=== PATIENT | female | born 1980 ===

== ENCOUNTER 2016-12-18 09:08 | Inpatient (IN) | payer MEDICAID, OTHER ==
[2016-12-18 10:13] VITALS: BMI 35.2
--- NOTE | 2016-12-18 10:26 | OBHP ---
Datetime: 12/18/2016 09:58 IP Adm Impression: Term, intrauterine IP Chief Complaint Other: elevated bp in clinic IP Admit Plan: Admit to unit Admit Comment, IP Provider: chief complaint-elevated bp in clinic HPI 36 y/o at 37 weeks and 3 days sent from the [facility] due to findings of elevated bp in clinic today.BP 158/98 today in clinic.Patient denies nausea, vomiting, headache. chest pain, shy rtness of breath, numbness or tinglning in handds and feet, epigastric pain, right upper quadrant aristides n.Patient denies any vulvar pain, ulcers or discomfort course complicated by AMA, type 2 diabetes metformin and glyburide( patient was on metfor min 1000mg po bid and then started on glyburide 2.5 mg daily on 06/26/2016); care with dr delfina palomo in [facility] at [facility]; no echo report available ; patienst blood sugar log shows fasting sugars in 90s and 2 hour PP in 100s; hx of hsv type 2 antobodies.patient denies any ou tbreaks.patient not on valtrex. PMH type 2 diabetes; hsv type 2 antibodies PSH csection OBGYN HX ; csection done. weight 10 pounds Social hx denies tobacco,alcohol or illicit drug use Exam see exam section A/P 36 y/o at 37 weeks and 3 days sent from clinic for elevated bp.FHT cat2 -pih labs -iv fluid bolus -close monitoring.discussed with patient that if tracing continues to be nonreactive delivery may be indicated.patient voices udnerstanding the plan Pelvic Type - PN: Adequate Extremities - PN: Normal Abdomen - PN: Normal Back - PN: Normal Lungs - PN: Normal Heart - PN: Normal Neurologic - PN: Normal General - PN: Normal FHR - Baseline A Provider: 140s Contraction Comments Provider: occ Gestation - Est Wks by US: 37.3 IP Hx Assessment: The History has been Reviewed and is Current EGA AdmitDate IP: 37.3 Vital Signs Provider: Reviewed; Within Normal Limits IP Chief Complaint: Other NICHD Variability Prov Fetus A: Minimal - Undetectable to <5bpm FHR Category Provider Fetus A: Category II NICHD Decel Fetus A IP Provider: None Genitourinary Exam: Normal DTRs - PN: Normal
[2016-12-18 10:38] LABS: BASO % 0.7 % (0.0-2.0); EOS # 0.1 K/uL (0.0-0.7); EOS % 0.9 % (0.0-4.0); LYMPH # 1.7 K/uL (1.0-4.3); LYMPH % 24.7 % (20.0-40.0); MEAN CELL VOLUME 86.1 fL (81.0-99.0); MEAN CORPUSCULAR HEMOGLOBIN 27.9 pg (27.0-31.0); MEAN CORPUSCULAR HGB CONC 32.4 g/dL (33.0-37.0); MEAN PLATELET VOLUME 11.6 fL (7.2-11.7); MONO # 0.5 K/uL (0.0-0.8); MONO % 6.5 % (0.0-10.0); NEUT # 4.6 K/uL (1.8-7.0); NEUT % 67.2 % (50.0-75.0); NRBC % 0.1 % (0.0-2.0); RBC 3.95 Mil/uL (3.80-5.20); WHITE BLOOD COUNT 6.9 K/uL (4.8-10.8)
[2016-12-18 10:42] LABS: SQUAMOUS EPITHIAL 6 /hpf (0-5); URINE BILIRUBIN NEGATIVE (NEGATIVE); URINE BLOOD NEGATIVE (NEGATIVE); URINE CLARITY Hazy (Clear); URINE COLOR Yellow (YELLOW); URINE GLUCOSE (UA) NORMAL (Normal); URINE NITRATE NEGATIVE (NEGATIVE); URINE PROTEIN 2+ mg/dL (NEGATIVE); URINE UROBILINOGEN NORMAL mg/dL (0.2-1.0)
[2016-12-18 10:43] LABS: URINE LEUKOCYTE ESTERASE 1+ Leu/uL (Negative)
[2016-12-18 10:49] LABS: ALBUMIN 3.1 g/dL (3.5-5.0)
[2016-12-18 10:52] LABS: ALB/GLOB RATIO 0.7 (1.0-2.1); AST/SGOT 89 U/L (14-36); BLOOD UREA NITROGEN 14 mg/dL (7-17); GFR AFRICAN-AMERICAN > 60; GFR NON-AFRICAN AMERICAN > 60
[2016-12-18 10:53] LABS: ALT/SGPT 138 U/L (9-52); CALCIUM 8.7 mg/dl (8.6-10.4); URIC ACID 6.2 mg/dL (2.2-7.5)
[2016-12-18] MEDS ORDERED: Sodium Citrate/Citric Acid 15 ml Sol PO ONE (10:53)
[2016-12-18] MEDS ORDERED: cefOXitin IV 2 gm in Dextrose 2 GM/50 ML BAG IVPB ONE ×2 (10:53→11:10)
[2016-12-18 11:07] LABS: INR 0.9; PROTHROMBIN TIME 9.8 SECONDS (9.7-12.2)
[2016-12-18] MEDS ORDERED: Oxytocin 20 units in LR 2,000 ML IV ONE (11:10)
[2016-12-18] MEDS ORDERED: Sodium Citrate/Citric Acid 15 ml Sol ONE (11:10)
[2016-12-18] MEDS ORDERED: Morphine 1 mg/ml preservative-free Inj(Duramorph) ONE (11:41)
--- NOTE | 2016-12-18 13:41 | OBDS ---
DELIVERY PERSONNEL Delivery Doctor: Dontae Contreras MD Scrub Nurse: Pauly Gonzalez Molder Setter: Dora Freire RN Anesthesiologist: Marilu Arriola MD Party Planner: tanisha displayer MATERNAL INFORMATION Delivery Anesthesia: Spinal Medications in Delivery: pitocin Estimated Blood Loss (ml): 900 Placenta Cultured: No Maternal Complications: Other Other Maternal Complications: PGDM Elevated BP RN Comments: baby boy born via repeat csection. apgars 9/[address] gabriel in attendance. Provider Comments: repeat csection and btl done apagsr 9/9 at1 and 5 min of life [id number] weight 9.9 pounds LABOR SUMMARY EDC: 01/05/2017 00:00 MEMBRANES Membranes Rupture Method: Artificial Rupture of Membranes: 12/18/2016 12:12 Length of Rupture (hrs): 0.02 Amniotic Fluid Color: Light Meconium Amniotic Fluid Amount: Moderate STAGES OF LABOR Stage 3 hrs: 0 Stage 3 min: 1 CSECTION DELIVERY Primary Indication: Other Other Primary Indication: pre-eclampsia Secondary Indication: Repeat Elective CSection Urgency: Non Elective CSection Incidence: Repeat Labor: No Labor Elective: Nonelective CSection Incision: Lower Uterine Transverse Sterilization Procedure: Hobson Uterine Closure: Single-layer closure BABY A INFORMATION Delivery Date/Time: 12/18/2016 12:13 Method of Delivery: Born in Route : No : N/A Forceps: N/A Vacuum Extraction: N/A Shoulder Dystocia : No SHOULDER DYSTOCIA BABY A Delivery Date/Time: 12/18/2016 12:13 PRESENTATION/POSITION BABY A Presentation: Cephalic Cephalic Presentation: Vertex Breech Presentation: N/A PLACENTA INFORMATION BABY A Placenta Delivery Time : 12/18/2016 12:14 Placenta Method of Delivery: Manual Removal Placenta Status: Delivered SCORES BABY A Heart Rate 1 min: >100 bpm Resp Effort 1 min: Good Cry Reflex Irritability 1 min: Cough or Sneeze or Pulls Away Muscle Tone 1 min: Active Motion Color 1 min: Body Fair Plain, Extremities Blue Resuscitation Effort 1 min: N/A SCORE 1 MIN: 9 Heart Rate 5 min: >100 bpm Resp Effort 5 min: Good Cry Reflex Irritability 5 min: Cough or Sneeze or Pulls Away Muscle Tone 5 min: Active Motion Color 5 min: Body Fair Plain, Extremities Blue Resuscitation Effort 5 min: N/A SCORE 5 MIN: 9 INFORMATION BABY A Gestational Age at Delivery: 37.3 Gestational Status: Term Infant Outcome : Liveborn Condition : Stable Infant Sex: Male WEIGHT/LENGTH BABY A Birthweight (gms): 4345 Weight (lb): 9 Weight (oz): 9 Length Inches: 20.00 Length cms: 50.8 CORD INFORMATION BABY A No. Cord Vessels: 3 Nuchal Cord : N/A Nuchal Cord Other: 0 True Knot: 0 Cord Blood Taken: Yes Suction: Mouth; Nose ASSESSMENT BABY A Complications: Other Complications Other: PGDM elevated BP Physical Findings at Delivery: Within Normal Limits Respirations: Appears Normal Mouse Breeder/ALS Called : Yes Infant Care By: DR Gabriel Transferred To: Remains with Mother
[2016-12-18] MEDS ORDERED: DiphenhydrAMINE 50 mg/ml Inj IVP PRN (13:43)
[2016-12-18] MEDS ORDERED: Naloxone 0.4 mg/ml Inj (Adult) IVP PRN (13:43)
[2016-12-18] MEDS ORDERED: Oxycodone/Acetaminophen 5/325 mg Tab PO PRN (14:10)
[2016-12-18] MEDS: cefOXitin IV 2 gm in Dextrose 2 GM/50 ML BAG IVPB SCH (18:40)
[2016-12-18] MEDS ORDERED: Lactated Ringer's 1,000 ML IV SCH (20:45)
--- NOTE | 2016-12-18 21:17 | PCM.OP ---
Operative Report - Operative Report Date of Surgery/Procedure: 12/18/16 Time of Surgery/Procedure: 11:46 Surgeon: Vickey Contreras Tool Operator: Oscar Aden Anesthesia/Sedation: Spinal; Dr Nicholas Arriola Pre-Operative Diagnosis: previous csection, pre-eclampsia, at 37 weeks , multiparity requesting sterilization Post-Operative Diagnosis: same as preop diagnosis Indication for Surgery: previous csection, pre-eclampsia, at 37 weeks , multiparity requesting sterilization Operative Findings: viable male in vertex presentation with apagars of 9 at 1 min and 9 at 5min of life; normal uterus tubes and ovaries; adhesions betweenomentum and anterior abdominal wall Procedure/Operation Description: Repeat section and bilateral tubal ligation Estimated Blood Loss: 900 Blood Replaced: none Sponge/Instrument Count: correct at the end of procedure Complications: none Specimen: placenta and cord blood; segment of right and left fallopian tube Discharge & Condition: stable to pacu Additional Comments - Additional Comments Additional Comments: Please note that the procedure required a surgical coordinator to assist with the entry into the abdominal cavity, to retract the tissues, to assist with the dissection as well as to assist with the delivery of the infant and assist with the closure of the abdominal wall. The surgical coordinator was present and scrubbed for the entire duration of the procedure. PROCEDURE IN DETAIL: After informed consent was obtained, the patient was taken to the operating room and spinal anesthesia was placed by anesthesia team.She was thereafter placed in dorsal supine position with a leftward tilt. The patient was then prepped and draped in the usual sterile manner. The Maldonado catheter was determined to be draining urine. A skin incision was then made with the scalpel in the previous csection scar incision was and carried down to the underlying layer of the fascia with the help of the Bovie. The fascia was then incised in the midline and the incision extended laterally with the help of electrocautery as well. The superior aspect of the fascial incision was then grasped with Armond clamps, elevated, and the underlying rectus muscle dissected off. The inferior aspect of the fascial incision was then grasped with Armond clamps, elevated, and the underlying rectus muscle was dissected off as well. The rectus muscle was then in the midline sharply. The peritoneum was picked up with 2 clamps and entered sharply with Metzenbaum scissors. Adhesions between the omentum and anterior abdominal wall were found and these were clamped and suture ligated.The peritoneal incision was extended superiorly and inferiorly with good visualization of the bladder. The bladder blade was then inserted and the vesicouterine peritoneum identified. A transverse incision was made over the vesicouterine peritoneum with the help of Metzenbaum scissors. The incision was extended laterally sharply using Metzenbaum scissors as well. The bladder blade was then reinserted after the bladder flap has been created. The lower uterine segment was identified. A transverse incision was made in lower uterine segment with the help of a fresh scalpel. The incision was extended laterally with the help of bandage scissors. The 's head was then delivered atraumatically. The body and the shoulders were delivered without any difficulty and the cord was then clamped and cut. The was handed over to the waiting pediatricians. A segment of cord was taken to collect cord blood pH. The cord blood was then collected and the placenta was then manually removed. The uterus was exteriorized and cleared of all clots and debris. The uterine incision was being repaired with 0 Polysorb in a running-locked fashion. Bleeding was noted from the right uterine artery which was sutured ligated using 0-chromic.The uterine incision repair site was noted to be homeostatic at this point.Patient had requested bilateral tubal ligation and this was done using pomeroys technique.The right fallopian tube was grasped with carlos clamp and a loop was made taking atleast 3cm of the fallopian tube in the midsection of the tube , using 2-0 plain.The loop was excised and the cut edges were cauterized.Similar procedure was repeated on left side as well. The uterus was returned to the patient's abdomen and the gutters were irrigated and suctioned. The uterus and the fallopian tubes ligation site on both sides was inspected for hemostasis and adequate hemostasis was noted . Surgicel was placed over the uterine incision repair site.The peritoneum was thereafter closed with 2-0 Polysorb in a running fashion. The muscle layer was reapproximated with 2-0 Polysorb in a running fashion. The fascia was closed with 0 Vicryl in a running fashion. The subcutaneous tissue was reapproximated with 2-0 Polysorb in a running fashion. The skin was then closed with sully. The sponge, lap, needle, and instrument count was correct x 3 as reported to me. The patient tolerated the procedure well. The patient was thereafter cleaned and taken to the recovery room in stable condition.
[2016-12-19] MEDS: cefOXitin IV 2 gm in Dextrose 2 GM/50 ML BAG IVPB SCH ×2 (02:21→13:39)
[2016-12-19 08:49] LABS: BASO % 0.4 % (0.0-2.0); EOS % 0.1 % (0.0-4.0); HEMOGLOBIN 10.5 g/dL (11.0-16.0); LYMPH # 1.5 K/uL (1.0-4.3); LYMPH % 12.1 % (20.0-40.0); MEAN CELL VOLUME 85.1 fL (81.0-99.0); MEAN CORPUSCULAR HEMOGLOBIN 27.8 pg (27.0-31.0); MEAN CORPUSCULAR HGB CONC 32.6 g/dL (33.0-37.0); MEAN PLATELET VOLUME 11.8 fL (7.2-11.7); MONO # 0.6 K/uL (0.0-0.8); NEUT # 10.4 K/uL (1.8-7.0); NEUT % 82.4 % (50.0-75.0); RBC 3.8 Mil/uL (3.80-5.20)
[2016-12-19 08:54] LABS: WHITE BLOOD COUNT 12.6 K/uL (4.8-10.8)
[2016-12-19 08:58] LABS: ALBUMIN 2.6 g/dL (3.5-5.0)
[2016-12-19 09:01] LABS: GFR AFRICAN-AMERICAN > 60; GFR NON-AFRICAN AMERICAN > 60
[2016-12-19 09:02] LABS: ALB/GLOB RATIO 0.7 (1.0-2.1); ALT/SGPT 110 U/L (9-52); AST/SGOT 74 U/L (14-36); BLOOD UREA NITROGEN 10 mg/dL (7-17); CALCIUM 8.1 mg/dl (8.6-10.4)
[2016-12-19] MEDS: Simethicone 80 mg Chewtab PO SCH ×4 (09:59→21:55)
[2016-12-19] MEDS: Prenatal Multivit/Folic Acid/Iron Tab PO SCH (09:59)
[2016-12-19] MEDS: Oxycodone/Acetaminophen 5/325 mg Tab PO PRN ×2 (10:00→17:24)
[2016-12-19] MEDS ORDERED: cefOXitin IV 2 gm in Dextrose 2 GM/50 ML BAG IVPB ONE (13:33)
--- NOTE | 2016-12-19 14:14 | OBPPN ---
Datetime: 12/19/2016 13:42 PP Pain Prov: Within normal limits PP Nausea Prov: Denies PP Flatus Prov: No PP BM Prov: No PP Breasts Prov: Normal PP Heart Prov: Normal PP Lungs Prov: Normal PP Abdomen/Uterus Prov: Normal PP Lochia Prov: Normal PP Vulva/Perineum Prov: Not Done PP CVA Tenderness Prov: Normal PP Extremities Prov: Normal PP C/S Incision Prov: Normal PP Progress Prov: Not Applicable PP Comments Phys Exam Prov: Skin: warm, dry, intact Abdomen: (+) BS. Soft. Dressing - clean and dry. Mild lochia rubra Extremities: no calf tenderness All other systems reviewed and are negative PP Impression Prov: Normal progression PP Plan Prov: Continue present management PP Progress Note Prov: Patient evaluated at approx 0800 hours: sitting up in chair in room 453. Boo es nausea, vomiting after breakfast. Not yet voided. ambulated a little in her room. Denies flatus or BM. Concerned re: her discharge; was transferred to [facility] P.E.: as above. WD in NAD. Awake, alert, oriented to time, person and place. Pleasant and cooperat johanna - POD#1 H/H 10.5/32.3. Rh(+) Assessment: 36 yo P2; S/P C/S #2 with BTL at 37 weeks probable pre-eclampsia. Type II DM on metfor min. F.S. noted. Afebrile, vital signs stable. Clinically stable Plan: 1) Encourage ambulation in hallways 2) Medicine consult - DM management 3) Will consider discharge home, 12/20 16 Vital Signs Provider PP: Reviewed; Within Normal Limits
--- NOTE | 2016-12-19 21:58 | CP.PCM.CON ---
<SapnaAleta L. - Last Filed: 12/19/16 21:54> History of Present Illness - History of Present Illness History of Present Illness: PGY1- Medicine note-Dr. Osman's Service MEDICAL CONSULT to OB for DM2 Ms. Lamb is a 36yo female s/p emergent with bilateral tubal ligation yesterday (12/18/16) due to elevated blood pressure, probable pre- eclampsia. was done at 37 weeks 3 days, was complicated by advanced maternal age, pre-gestational type 2 diabetes on metformin and glyburide (patient was on metformin 1000mg po bid prior to and started on glyburide 2.5mg po daily of 06/26/16) and HSV type 2 antibodies. Pt denies active outbreak or medication control. Patient is resting comfortably in bed. Patient admits to tenderness over the incision site. Patient is having normal urination. Patient has yet to have a bowel movement since delivery. Denies headache, dizziness, chest pain, palpitations, shortness of breath, nausea, or vomiting, pedal edema. PMH: diabetes mellitus type 2, HSV type 2 Allergies: NKA Surgical Hx: x2, first for breech, second with bilateral tubal ligation. OBGYN: ; done, weight 9 lbs 9 oz Family Hx: Denies hypertension, diabetes. Social Hx: Denies ever tobacco, alcohol, illicit drug use. Review of Systems - Constitutional Constitutional: Fatigue. absent: Fever, Headache - EENT Eyes: absent: Blurred Vision, Diplopia Ears: absent: Decreased Hearing Nose/Mouth/Throat: absent: Nasal Congestion, Sinus Pain, Sinus Pressure - Cardiovascular Cardiovascular: absent: Chest Pain, Dyspnea, Edema, Palpitations - Respiratory Respiratory: absent: Cough, Dyspnea, Pain on Inspiration - Gastrointestinal Gastrointestinal: Constipation - Genitourinary Genitourinary: absent: Change in Urinary Stream, Difficulty Urinating, Dysuria, Urinary Incontinence, Urinary Hesitance - Musculoskeletal Musculoskeletal: absent: Joint Swelling, Muscle Cramps, Muscle Weakness - Integumentary Integumentary: absent: Skin Ulcer - Neurological Neurological: absent: Dizziness, Numbness, Headaches, Tingling - Psychiatric Psychiatric: absent: Behavioral Changes - Hematologic/Lymphatic Hematologic: absent: Easy Bleeding, Easy Bruising Meds Allergies/Adverse Reactions: Allergies Allergy/AdvReac Type Severity Reaction Status Date / Time No Known Allergies Allergy Verified 12/18/16 18:38 - Medications Medications: Current Medications Diphenhydramine HCl (Benadryl) 25 mg IVP Q6 PRN PRN Reason: Itching / Pruritus Docusate Sodium (Colace) 100 mg PO BID [facility] Last Admin: 12/19/16 17:19 Dose: 100 mg Ferrous Sulfate (Feosol) 325 mg PO DAILY [facility] Last Admin: 12/19/16 09:59 Dose: 325 mg Oxytocin (Pitocin 20 Units In Lr) 1,000 mls @ 125 mls/hr IV .Q8H [facility] PRN Reason: Protocol Last Admin: 12/18/16 18:45 Dose: 125 mls/hr Ibuprofen (Motrin Tab) 600 mg PO Q6H PRN PRN Reason: Pain, Mild (1-3) Last Admin: 12/19/16 13:38 Dose: 600 mg [facility] Admin: 12/19/16 17:19 Dose: 1,000 mg Naloxone HCl (Narcan) 0.1 mg IVP Q2M PRN PRN Reason: apnea Ondansetron HCl (Zofran Inj) 4 mg IVP Q8H PRN PRN Reason: Nausea/Vomiting Last Admin: 12/18/16 20:37 Dose: 4 mg Oxycodone/Acetaminophen (Percocet 5/325 Mg Tab) 2 tab PO Q4H PRN PRN Reason: Pain, severe (8-10) Stop: 12/21/16 14:11 Oxycodone/Acetaminophen (Percocet 5/325 Mg Tab) 1 tab PO Q4H PRN PRN Reason: Pain, moderate (4-7) Stop: 12/21/16 14:11 Last Admin: 12/19/16 17:24 Dose: 1 tab Multivit/Folic Acid/Iron () 1 tab PO DAILY [facility] Last Admin: 12/19/16 09:59 Dose: 1 tab Simethicone (Mylicon Chew Tab) 80 mg PO QID [facility] Last Admin: 12/19/16 17:19 Dose: 80 mg Physical Exam - Constitutional Appears: Well, No Acute Distress - Head Exam Head Exam: ATRAUMATIC, NORMAL INSPECTION, NORMOCEPHALIC - Eye Exam Eye Exam: EOMI, Normal appearance, PERRL - ENT Exam ENT Exam: Mucous Membranes Moist, Normal Exam - Neck Exam Neck exam: Positive for: Normal Inspection - Respiratory Exam Respiratory Exam: Clear to Auscultation Bilateral, NORMAL BREATHING PATTERN. absent: Rales, Rhonchi, Wheezes, Respiratory Distress, Stridor - Cardiovascular Exam Cardiovascular Exam: REGULAR RHYTHM, RRR. absent: Systolic Murmur - GI/Abdominal Exam GI & Abdominal Exam: Normal Bowel Sounds, Soft, Tenderness. absent: Distended, Firm, Guarding Additional comments: tender at c section incision site. sully intact, incision is clean and dry - Extremities Exam Extremities exam: Positive for: full ROM, normal inspection. Negative for: pedal edema, tenderness - Back Exam Back exam: NORMAL INSPECTION. absent: rash noted - Neurological Exam Neurological exam: Alert, Oriented x3 - Psychiatric Exam Psychiatric exam: Normal Affect, Normal Mood - Skin Skin Exam: Dry, Normal Color, Warm Additional comments: suprapubic incision dry, clean, intact Results - Vital Signs Recent Vital Signs: Last Vital Signs Temp 97.6 F 12/19/16 16:00 Pulse 61 12/19/16 16:00 Resp 18 12/19/16 16:00 BP 137/82 12/19/16 16:00 Pulse Ox 97 12/19/16 16:00 - Labs Result Diagrams: 12/19/16 08:37 12/19/16 08:37 Labs: Laboratory Results - last 24 hr 12/18/16 12/19/16 12/19/16 22:29 06:28 08:37 WBC RBC Hgb Hct MCV MCH MCHC RDW Plt Count MPV Neut % (Auto) Lymph % (Auto) [place] % (Auto) Eos % (Auto) Baso % (Auto) Neut # Lymph # [place] # Eos # Baso # Sodium 132 Potassium 3.7 Chloride 100 Carbon Dioxide 25 Anion Gap 11 BUN 10 Creatinine 0.7 Est GFR ( Amer) > 60 Est GFR (Non-Af Amer) > 60 POC Glucose (mg/dL) 130 H 146 H Random Glucose 160 H Calcium 8.1 L Total Bilirubin 0.5 AST 74 H ALT 110 H D Alkaline Phosphatase 185 H Total Protein 6.1 L Albumin 2.6 L Globulin 3.5 Albumin/Globulin Ratio 0.7 L 12/19/16 08:37 WBC 12.6 H D RBC 3.80 Hgb 10.5 L Hct 32.3 L MCV 85.1 MCH 27.8 MCHC 32.6 L RDW 15.0 H Plt Count 177 MPV 11.8 H Neut % (Auto) 82.4 H Lymph % (Auto) 12.1 L [place] % (Auto) 5.0 Eos % (Auto) 0.1 Baso % (Auto) 0.4 Neut # 10.4 H Lymph # 1.5 [place] # 0.6 Eos # 0.0 Baso # 0.0 Sodium Potassium Chloride Carbon Dioxide Anion Gap BUN Creatinine Est GFR ( Amer) Est GFR (Non-Af Amer) POC Glucose (mg/dL) Random Glucose Calcium Total Bilirubin AST ALT Alkaline Phosphatase Total Protein Albumin Globulin Albumin/Globulin Ratio Assessment & Plan - Assessment and Plan (Free Text) Assessment: 1. Diabetes Mellitus type 2 Continue metformin 1000mg po bid, deemed safe for per [employer] LactMed guide. Trend daily glucose. A1C done 2 months ago, and trending below 6.5%. Will not redraw. 2. S/P with BTL (12/18/16) due to probable pre-eclampsia at 37 weeks 3 days, Ibuprofen 600mg po q6h PRN for mild (1-08/23) pain control. Trend LFTs. Still elevated on latest draw but trending down (AST 74, ALT 110). - Percocet stopped, Oxycodone 5 mg ordered BP stable throughout until admission, monitor and trend prior to discharge. 3. Hx HSV type 2 Ab positive, no active lesions 4. Constipation Colace 100mg po bid <Loreto Osman V - Last Filed: 12/20/16 22:39> Results - Vital Signs Recent Vital Signs: Last Vital Signs Temp 98.6 F 12/20/16 08:00 Pulse 84 12/20/16 08:00 Resp 20 12/20/16 08:00 BP 132/89 12/20/16 08:00 Pulse Ox 98 12/20/16 08:00 - Labs Result Diagrams: 12/19/16 08:37 12/20/16 09:13 Labs: Laboratory Results - last 24 hr 12/19/16 12/20/16 12/20/16 08:37 07:50 09:13 Sodium 136 Potassium 3.6 Chloride 102 Carbon Dioxide 27 Anion Gap 11 BUN 8 Creatinine 0.6 L Est GFR ( Amer) > 60 Est GFR (Non-Af Amer) > 60 POC Glucose (mg/dL) 131 H Random Glucose 118 H Hemoglobin A1c 7.9 H D Calcium 8.4 L Total Bilirubin 0.5 AST 45 H D ALT 81 H D Alkaline Phosphatase 176 H Total Protein 6.8 Albumin 3.0 L Globulin 3.8 Albumin/Globulin Ratio 0.8 L Attending/Attestation - Attestation I have personally seen and examined this patient.: Yes I have fully participated in the care of the patient.: Yes I have reviewed all pertinent clinical information: Yes Notes (Text): This is late computer entry for 12/19/16. Patient seen, examined, and case discussed with day-time resident. Medicine consult for diabetes management post-. Patient with a known history of type 2 diabetes. Patient restarted on home medication: Metformin 1000mg PO bid. Patient during was started on Glyburide. Reviewed patient's clinic records to confirm medication. Patient's past four [id number] under 6.5. Patient's last a1c was of and would be due next 6 months to 1 year to monitor. Patient is compliant in checking her sugars at home and in low mid 100s. Management [id number] per ob-mannequin refinisher. Recommend changing Percocet to Oxycodone given patient as mild transaminitis and refrain from Tylenol. Discussed with Ob-mannequin refinisher, Dr Anders who is aware. Discussed with patient that her liver numbers are mildly high and will need to recheck with primary care doctor. Review [employer] LactMed, Metformin is deemed safe for breast feeding. Assessment/Plan 1. Diabetes Mellitus type 2 Continue metformin 1000mg po bid, deemed safe for per [employer] LactMed guide. Trend daily glucose. A1C done 2 months ago, and trending below 6.5%. Will not redraw. 2. S/P Management per OBGYN Recommended change from Percocet to Oxycodone given mild transaminitis. 3. Hx HSV type 2 Ab positive, no active lesions. Patient does not have any current outbreaks. 4. Constipation Colace 100mg po bid
[2016-12-19] MEDS ORDERED: oxyCODONE 5 mg Immediate Release Tab PO PRN (22:07)
--- NOTE | 2016-12-20 08:23 | CP.PCM.PN ---
<Anahi Lucio - Last Filed: 12/20/16 10:09> Subjective - Date & Time of Evaluation Date of Evaluation: 12/20/16 Time of Evaluation: 10:10 - Subjective Subjective: PGY2 Progress note for IM Pt is seen and examined at bedside. No acute events overnight. Patient is only complaining of slight pain at c section incision site. Patient is tolerating diet and denies having any abd pain, N/V. Patient has not had a BM yet but is passing gas. 12 point ROS are negative except for the above mentioned. Objective - Vital Signs/Intake and Output Vital Signs (last 24 hours): Temp Pulse Resp BP Pulse Ox 97.6 F 61 18 137/82 97 12/19/16 16:00 12/19/16 16:00 12/19/16 16:00 12/19/16 16:00 12/19/16 16:00 - Medications Medications: Current Medications Diphenhydramine HCl (Benadryl) 25 mg IVP Q6 PRN PRN Reason: Itching / Pruritus Docusate Sodium (Colace) 100 mg PO BID REPLACED BY [facility] Last Admin: 12/19/16 17:19 Dose: 100 mg Ferrous Sulfate (Feosol) 325 mg PO DAILY REPLACED BY [facility] Last Admin: 12/19/16 09:59 Dose: 325 mg Oxytocin (Pitocin 20 Units In Lr) 1,000 mls @ 125 mls/hr IV .Q8H REPLACED BY [facility] PRN Reason: Protocol Last Admin: 12/18/16 18:45 Dose: 125 mls/hr Ibuprofen (Motrin Tab) 600 mg PO Q6H PRN PRN Reason: Pain, Mild (1-3) Last Admin: 12/19/16 13:38 Dose: 600 mg Metformin HCl (Glucophage) 1,000 mg PO BIDBS REPLACED BY [facility] Last Admin: 12/20/16 07:56 Dose: 1,000 mg Naloxone HCl (Narcan) 0.1 mg IVP Q2M PRN PRN Reason: apnea Ondansetron HCl (Zofran Inj) 4 mg IVP Q8H PRN PRN Reason: Nausea/Vomiting Last Admin: 12/18/16 20:37 Dose: 4 mg Oxycodone HCl (Oxycodone Immediate Release Tab) 5 mg PO Q4 PRN PRN Reason: Pain, moderate (4-7) Multivit/Folic Acid/Iron () 1 tab PO DAILY REPLACED BY [facility] Last Admin: 12/19/16 09:59 Dose: 1 tab Simethicone (Mylicon Chew Tab) 80 mg PO QID REPLACED BY [facility] Last Admin: 12/19/16 21:55 Dose: 80 mg - Labs Labs: 12/19/16 08:37 12/19/16 08:37 PT 9.8 SECONDS (9.7-12.2) 12/18/16 10:31 INR 0.9 12/18/16 10:31 APTT 28 SECONDS (21-34) 12/18/16 10:31 - Constitutional Appears: Non-toxic, No Acute Distress - Head Exam Head Exam: ATRAUMATIC - Eye Exam Eye Exam: EOMI - ENT Exam ENT Exam: Mucous Membranes Moist - Respiratory Exam Respiratory Exam: Clear to Ausculation Bilateral. absent: Accessory Muscle Use , Rales, Rhonchi, Wheezes, Respiratory Distress - Cardiovascular Exam Cardiovascular Exam: REGULAR RHYTHM, +S1, +S2 - GI/Abdominal Exam GI & Abdominal Exam: Soft, Normal Bowel Sounds. absent: Distended, Firm, Guarding, Rigid, Tenderness, Organomegaly Additional comments: suprapubic midline incision noted with sully in place. No drainage - Extremities Exam Extremities Exam: absent: Pedal Edema, Tenderness - Neurological Exam Neurological Exam: Alert, Awake, Oriented x3 - Psychiatric Exam Psychiatric exam: Normal Affect, Normal Mood - Skin Skin Exam: Dry, Intact, Normal Color, Warm Assessment and Plan - Assessment and Plan (Free Text) Assessment: 36 year old female with PMHx of Type 2 DM, HSV type 2, is s/p emergent C section POD #2 is being seen for DM. 1. Diabetes Mellitus type 2 Continue metformin 1000mg po bid, deemed safe for per [employer] guide. Patient to continue Metformin 100 mg PO BID upon discharge. LFTs down trending Follow up in [facility] upon discharge for medication adjustment 2. S/P Management as per OBGYN 3. 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 Constipation Colace 100mg po bid Case discussed with attending, Dr. Osman <Loreto Osman V - Last Filed: 12/20/16 22:42> Objective - Vital Signs/Intake and Output Vital Signs (last 24 hours): Temp Pulse Resp BP Pulse Ox 98.6 F 84 20 132/89 98 12/20/16 08:00 12/20/16 08:00 12/20/16 08:00 12/20/16 08:00 12/20/16 08:00 - Labs Labs: 12/19/16 08:37 12/20/16 09:13 PT 9.8 SECONDS (9.7-12.2) 12/18/16 10:31 INR 0.9 12/18/16 10:31 APTT 28 SECONDS (21-34) 12/18/16 10:31 Attending/Attestation - Attestation I have personally seen and examined this patient.: Yes I have fully participated in the care of the patient.: Yes I have reviewed all pertinent clinical information, including history, physical exam and plan: Yes Notes (Text): Patient seen, examined, and case discussed with day-time resident. Patient seen at bedside. Patient denies acute complaints. Patient ordered for blood work this morning. Liver function tests improving. Recommend continue Metformin 1000mg PO bid. Patient's a1c: 7.9 uncontrolled prior to her 4 prior a1c which were well-controlled. Recommended to follow-up at the [facility] ([phone]) to monitor liver function tests and monitor sugars while on Metformin therapy.
[2016-12-20 09:28] LABS: ALB/GLOB RATIO 0.8 (1.0-2.1); ALT/SGPT 81 U/L (9-52); AST/SGOT 45 U/L (14-36); BLOOD UREA NITROGEN 8 mg/dL (7-17); CALCIUM 8.4 mg/dl (8.6-10.4); GFR AFRICAN-AMERICAN > 60; GFR NON-AFRICAN AMERICAN > 60
[2016-12-20] MEDS: Simethicone 80 mg Chewtab PO SCH (09:56)
[2016-12-20] MEDS: Prenatal Multivit/Folic Acid/Iron Tab PO SCH (09:57)
[2016-12-20 10:17] VITALS: BP 132/89; PULSE 84; RESP 20; TEMP 98.6; O2SAT 98
--- NOTE | 2016-12-20 14:13 | OBPPN ---
Datetime: 12/20/2016 07:27 PP Pain Prov: Within normal limits PP Nausea Prov: Denies PP Flatus Prov: Yes PP BM Prov: No PP Breasts Prov: Normal PP Heart Prov: Normal PP Lungs Prov: Normal PP Abdomen/Uterus Prov: Normal PP Lochia Prov: Normal PP Vulva/Perineum Prov: Normal PP CVA Tenderness Prov: Normal PP Extremities Prov: Normal PP Impression Prov: Normal progression PP Plan Prov: Discharge PP Progress Note Prov: Pt seen and examined and states pain is well controlled. pt is ambuating, joe leslie, tolerating diet, passing flatus, +BM, pumping. Pt is requesting discharge as her baby was trans ferred to different hospital. Pt denies any headaches, blurry vision, RUQ/epigastric pain. VSS PE see above s/p RLTCS POD #2, with -f/u medicine consult IP PP Procedures: None Vital Signs Provider PP: Reviewed
--- NOTE | 2016-12-20 14:15 | OBDCSUM ---
Datetime: 12/20/2016 11:06 Discharged to, Provider: Home Follow up at, Provider: [facility] clinic Disch Instr Activity: May Shower Disch Instr Diet: Regular Discharge Diet restrict Prov: ADA diet Discharge Instructions, Provider: Routine instructions given Discharge Diagnosis, Provider: Term Delivered Discharge Time: 12/20/2016 11:06 Follow up in weeks, Provider: 7 Disch Referrals: None Contraception discussed, Prov: Yes Disch Activity Restrictions: No lifting; No sexual activity; Nothing in vagina - [place], tampon s, douche Discharge Diagnosis Prov Other: Type II DM, Preeclampsia
== END 2016-12-20 13:00 | disposition home or self-care (01) | DRG 650 ==
LOC: C.EROB 09:08 → C.4D 10:56 → C.4M 16:35
PROVIDERS: ADMIT Student in an Organized Health Care Education/Training Program; ATTEND Student in an Organized Health Care Education/Training Program
PROC: 10D00Z1 Extraction of Products of Conception, Low, Open Approach (ICD-10-PCS; principal; 2016-12-18)
PROC: 0UB70ZZ Excision of Bilateral Fallopian Tubes, Open Approach (ICD-10-PCS; 2016-12-18)
DX: O14.94 Unspecified pre-eclampsia, complicating childbirth (principal); O24.92 Unspecified diabetes mellitus in childbirth; Z37.0 Single live birth; O99.89 Other specified diseases and conditions complicating pregnancy, childbirth and the puerperium; E11.9 Type 2 diabetes mellitus without complications; O69.81X0 Labor and delivery complicated by cord around neck, without compression, not applicable or unspecified; K59.00 Constipation, unspecified; N73.6 Female pelvic peritoneal adhesions (postinfective); O34.211 Maternal care for low transverse scar from previous cesarean delivery; Z3A.37 37 weeks gestation of pregnancy; O09.523 Supervision of elderly multigravida, third trimester; Z79.84 Long term (current) use of oral hypoglycemic drugs; Z30.2 Encounter for sterilization